=== PATIENT | male | born 1975 | race Caucasian/White ===

== ENCOUNTER 2019-05-05 10:36 | Emergency (ER) | payer SELFPAY ==
[2019-05-05 10:45] VITALS: BP 133/88; PULSE 67; TEMP 97.7; BMI 25.0
[2019-05-05] MEDS ORDERED: FLUORESCEIN NA 1 EA STRIP ONE (11:18)
[2019-05-05] MEDS ORDERED: TETRACAINE 0.5% OPHTH SOLN 2 ML BOTTLE ONE (11:18)
[2019-05-05] MEDS ORDERED: TETRACAINE 0.5% OPHTH SOLN 2 ML BOTTLE OS ONE (11:18)
[2019-05-05] MEDS ORDERED: DIPHTH,PERTUSS(ACELL),TET 0.5 ML DISP.SYRIN IM ONE ×2 (11:25→11:28)
--- NOTE | 2019-05-05 11:25 | PDOC ---
History of Present Illness - General Chief Complaint: Eye Problem Stated Complaint: LT. EYE PAIN Time Seen by Provider: 05/05/19 10:51 - History of Present Illness Initial Comments: 05/05/19 11:23 43-year-old male unsure of his current tetanus status presents for evaluation of left eye irritation x1 day after he was doing work and he feels a foreign body sensation. Past History - Past Medical History Allergies/Adverse Reactions: Allergies Allergy/AdvReac Type Severity Reaction Status Date / Time No Known Allergies Allergy Verified 05/05/19 10:45 Home Medications: Ambulatory Orders Tobramycin 0.3% Ophth Soln [Tobrex Ophthalmic Solution -] 1 drop OS Q4HWA 5 Days #1 bottle 05/05/19 COPD: No - Psycho Social/Smoking Cessation Hx Smoking History: Never smoked Information on smoking cessation initiated: No Hx Alcohol Use: No Drug/Substance Use Hx: No Review of Systems - Review of Systems HEENTM: Yes: See HPI, Eye Pain, Tearing *Physical Exam - Vital Signs Last Vital Signs Temp Pulse Resp BP Pulse Ox 97.7 F 67 19 133/88 100 05/05/19 10:44 05/05/19 10:44 05/05/19 10:44 05/05/19 10:44 05/05/19 10:44 - Physical Exam 05/05/19 11:23 The eye was instilled with tetracaine drops stained with fluorescein there is a large corneal abrasion on the anterior aspect of the eye at about the 6 o'clock position ED Treatment Course - Medications Given in the ED: ED Medications Discontinued Medications Generic Name Dose Route Start Last Admin Trade Name Taisha PRN Reason Stop Dose Admin Tetracaine HCl 1 drop 05/05/19 11:18 05/05/19 11:19 Pontocaine OS 05/05/19 11:19 1 drop ONCE ONE Administration Medical Decision Making - Medical Decision Making 05/05/19 11:24 Tobramycin follow-up with ophthalmology tetanus shot up-to-date Discharge - Discharge Information Problems reviewed: Yes Clinical Impression/Diagnosis: Corneal abrasion Condition: Stable Disposition: HOME - Admission No - Additional Discharge Information Prescriptions: Tobramycin 0.3% Ophth Soln [Tobrex Ophthalmic Solution -] 1 drop OS Q4HWA 5 Days #1 bottle - Follow up/Referral Referrals: Aron Curry [Non Staff, Medical] - Aljian,Ayo [Non Staff, Medical] - Sae Ron [Staff Physician] - Tahmina Alvarenga MD [Staff Physician] - Jaleel Cummings MD [Staff Physician] - Jaleel Cummings MD [Staff Physician] - - Patient Discharge Instructions Patient Printed Discharge Instructions: DI for Corneal Abrasion, Corneal Abrasion Additional Instructions: Please use the antibiotic drops as directed. Return to the emergency room for worsening symptoms. Without fail please follow-up with ophthalmology in 2 to 3 days for further evaluation and treatment options. Your tetanus shot was updated today. - Post Discharge Activity
== END 2019-05-05 12:00 | disposition home or self-care (01) ==
LOC: JERFT 10:36
PROC: 3E0234Z Introduction of Serum, Toxoid and Vaccine into Muscle, Percutaneous Approach (ICD-10-PCS; principal; 2019-05-05)
DX: S05.02XA Injury of conjunctiva and corneal abrasion without foreign body, left eye, initial encounter (principal); X58.XXXA Exposure to other specified factors, initial encounter; Y93.89 Activity, other specified; Y92.410 Unspecified street and highway as the place of occurrence of the external cause; Y99.0 Civilian activity done for income or pay
CPT/HCPCS: 90715; 99282-25